=== PATIENT | female | born 1985 | race Caucasian/White ===

== ENCOUNTER 2017-08-20 19:29 | Emergency (ER) | payer MEDICAID, OTHER ==
[~2017-08-20] VITALS: Ht 162.6 cm; Wt 88.2 kg
[2017-08-20] MEDS ORDERED: CLIN300C53 PO (20:48)
[2017-08-20 21:03] VITALS: BP 145/89
== END 2017-08-20 21:07 | disposition home or self-care (01) ==
LOC: ER 19:29
DX: K08.89 Other specified disorders of teeth and supporting structures (principal); F17.200 Nicotine dependence, unspecified, uncomplicated; Z88.5 Allergy status to narcotic agent; Z88.0 Allergy status to penicillin; Z88.2 Allergy status to sulfonamides; Z79.899 Other long term (current) drug therapy
CPT/HCPCS: 99283

== ENCOUNTER 2018-12-19 13:04 | Emergency (ER) | payer MEDICAID ==
[~2018-12-19] VITALS: Ht 162.6 cm; Wt 60.0 kg
[2018-12-19 13:24] VITALS: BP 143/91
== END 2018-12-19 14:15 | disposition home or self-care (01) ==
LOC: ER 13:04
DX: F15.10 Other stimulant abuse, uncomplicated (principal); F17.200 Nicotine dependence, unspecified, uncomplicated; Z02.89 Encounter for other administrative examinations; Z88.6 Allergy status to analgesic agent; Z88.0 Allergy status to penicillin
CPT/HCPCS: 99281

== ENCOUNTER 2019-01-09 09:36 | Emergency (ER) | payer MEDICAID ==
[~2019-01-09] VITALS: Ht 162.6 cm; Wt 69.2 kg
[2019-01-09] MEDS ORDERED: ketorolac trometh inj. 60 MG/2 ML VIAL IM ONE (10:40)
[2019-01-09] MEDS ORDERED: orphenadrine citrate 60mg/2ml inj. IM ONE (10:40)
[2019-01-09] MEDS ORDERED: IBUP-1986 PO (10:42)
[2019-01-09] MEDS ORDERED: ORPH100T2 PO (10:42)
[2019-01-09 11:03] VITALS: BP 138/84
== END 2019-01-09 11:05 | disposition home or self-care (01) ==
LOC: ER 09:37
DX: M25.512 Pain in left shoulder (principal); M54.6 Pain in thoracic spine; F15.90 Other stimulant use, unspecified, uncomplicated; Z88.5 Allergy status to narcotic agent; Z88.0 Allergy status to penicillin; Z88.2 Allergy status to sulfonamides
CPT/HCPCS: 96372; 99283; J1885; J2360

== ENCOUNTER 2019-02-08 08:39 | Emergency (ER) | payer MEDICAID ==
[~2019-02-08] VITALS: Ht 162.6 cm; Wt 68.2 kg
[~2019-02-08 08:39] MED LIST: IBUP-1986 PO; ORPH100T2 PO
[2019-02-08] MEDS ORDERED: HYDROcodone/acetaminophen 5mg/325mg tablet PO ONE (09:30)
[2019-02-08] MEDS ORDERED: CLIN-96 PO (09:38)
--- NOTE | 2019-02-08 09:54 | NUR ---
PATIENT HAS APPOINTMENT WITH DENTIST MATHEW FOR POSSIBLY REMOVING ALL OF HER TEETH
[2019-02-08 09:58] VITALS: BP 138/87
== END 2019-02-08 10:05 | disposition home or self-care (01) ==
LOC: ER 08:40
DX: K08.89 Other specified disorders of teeth and supporting structures (principal); R51 Headache; H92.09 Otalgia, unspecified ear; F17.200 Nicotine dependence, unspecified, uncomplicated; Z60.2 Problems related to living alone; Z88.5 Allergy status to narcotic agent; Z88.0 Allergy status to penicillin; Z88.2 Allergy status to sulfonamides; Z79.2 Long term (current) use of antibiotics; Z79.899 Other long term (current) drug therapy
CPT/HCPCS: 99283

== ENCOUNTER 2019-04-26 07:37 | Emergency (ER) | payer MEDICAID ==
[~2019-04-26] VITALS: Ht 162.6 cm; Wt 68.2 kg
[~2019-04-26 07:37] MED LIST changes: +CLIN-90 PO
[2019-04-26 08:05] VITALS: BP 129/84
[2019-04-26] MEDS ORDERED: AZIT250T PO (09:18)
== END 2019-04-26 09:53 | disposition home or self-care (01) ==
LOC: ER 07:37
DX: J06.9 Acute upper respiratory infection, unspecified (principal); F17.210 Nicotine dependence, cigarettes, uncomplicated; F10.99 Alcohol use, unspecified with unspecified alcohol-induced disorder; Z71.6 Tobacco abuse counseling; Z60.2 Problems related to living alone; Z88.5 Allergy status to narcotic agent; Z88.0 Allergy status to penicillin; Z88.2 Allergy status to sulfonamides; Z79.899 Other long term (current) drug therapy; Y90.9 Presence of alcohol in blood, level not specified
CPT/HCPCS: 99283; 99406

== ENCOUNTER 2019-06-27 10:12 | Emergency (ER) | payer MEDICAID | END 2019-06-27 11:57 | disposition left against medical advice (07) | LOC: ER 10:12 | DX: R22.0 Localized swelling, mass and lump, head (principal); Z53.21 Procedure and treatment not carried out due to patient leaving prior to being seen by health care provider ==

== ENCOUNTER 2019-07-25 08:27 | Emergency (ER) | payer MEDICAID ==
[~2019-07-25] VITALS: Ht 162.6 cm; Wt 68.2 kg
[2019-07-25] MEDS ORDERED: PRED20TA PO (10:09)
[2019-07-25] MEDS ORDERED: ALBU6.7H9 INH (10:09)
[2019-07-25 10:12] VITALS: BP 122/81
== END 2019-07-25 10:14 | disposition home or self-care (01) ==
LOC: ER 08:28
DX: J06.9 Acute upper respiratory infection, unspecified (principal); B97.89 Other viral agents as the cause of diseases classified elsewhere; F17.210 Nicotine dependence, cigarettes, uncomplicated; Z60.2 Problems related to living alone; Z72.89 Other problems related to lifestyle; Z88.5 Allergy status to narcotic agent; Z88.0 Allergy status to penicillin; Z88.2 Allergy status to sulfonamides; Z79.899 Other long term (current) drug therapy
CPT/HCPCS: 99283; 99406

== ENCOUNTER 2019-09-21 14:41 | Emergency (ER) | payer MEDICAID ==
[~2019-09-21] VITALS: Ht 162.6 cm; Wt 68.0 kg
[~2019-09-21 14:41] MED LIST changes: +ALBU6.7H9 INH; -CLIN-90 PO; +CLIN-97 PO
[2019-09-21] MEDS ORDERED: DOXY100C77 PO (15:18)
[2019-09-21] MEDS ORDERED: dexamethasone 4mg tablet PO ONE (15:20)
[2019-09-21] MEDS ORDERED: LIDOcaine 1% W/epiNEPHrine 1:200,000 10ml vial IJ ONE (15:20)
[2019-09-21] MEDS ORDERED: dexamethasone sod phosphate 10mg/ml inj PO ONE (15:25)
[2019-09-21 16:55] VITALS: BP 122/78
== END 2019-09-21 16:53 | disposition home or self-care (01) ==
LOC: ER 14:41
DX: L03.211 Cellulitis of face (principal); Z72.89 Other problems related to lifestyle; Z60.2 Problems related to living alone; Z88.5 Allergy status to narcotic agent; Z88.0 Allergy status to penicillin; Z88.2 Allergy status to sulfonamides; Z79.2 Long term (current) use of antibiotics; Z79.899 Other long term (current) drug therapy
CPT/HCPCS: 10060; 99284; J1100

== ENCOUNTER 2019-09-25 11:10 | Emergency (ER) | payer MEDICAID ==
[~2019-09-25] VITALS: Ht 162.6 cm; Wt 73.0 kg
[~2019-09-25 11:10] MED LIST changes: +DOXY100C77 PO
[2019-09-25 11:16] VITALS: BP 118/78
[2019-09-25] MEDS ORDERED: CLIN-97 PO (12:19)
[2019-09-25] MEDS ORDERED: TRAM50TA2 PO (12:20)
== END 2019-09-25 12:29 | disposition home or self-care (01) ==
LOC: ER 11:10
DX: K04.7 Periapical abscess without sinus (principal); Z88.0 Allergy status to penicillin; Z88.2 Allergy status to sulfonamides; Z88.5 Allergy status to narcotic agent
CPT/HCPCS: 99283

== ENCOUNTER 2024-04-18 14:19 | Emergency (ER) | payer MEDICAID ==
[~2024-04-18] VITALS: Ht 162.6 cm; Wt 93.8 kg
[~2024-04-18 14:19] MED LIST changes: +ALBU6.7H14 INH; -ALBU6.7H9 INH; -DOXY100C77 PO; -ORPH100T2 PO; +ORPH100T4 PO
[2024-04-18] MEDS: ondansetron/PF 4mg/2ml inj IM ONE (15:48)
[2024-04-18] MEDS: normal saline 1000ml 1,000 ML IV ONE (15:49)
[2024-04-18] MEDS ORDERED: ONDA-245 PO (17:04)
[2024-04-18 17:18] VITALS: BP 115/74; PULSE 97; RESP 16; TEMP 98.5; O2SAT 99
== END 2024-04-18 17:19 | disposition home or self-care (01) ==
LOC: ER 14:20
DX: R11.2 Nausea with vomiting, unspecified (principal); R19.7 Diarrhea, unspecified; Z88.0 Allergy status to penicillin; Z88.2 Allergy status to sulfonamides; Z88.5 Allergy status to narcotic agent; Z79.1 Long term (current) use of non-steroidal anti-inflammatories (NSAID); Z79.899 Other long term (current) drug therapy; Z60.2 Problems related to living alone
CPT/HCPCS: 96360; 96372; 99284; J2405; J7030

== ENCOUNTER 2025-04-24 09:18 | Emergency (ER) | payer MEDICAID ==
[~2025-04-24] VITALS: Ht 160 cm; Wt 88.9 kg
[~2025-04-24 09:18] MED LIST changes: +CLIN-224 PO; -CLIN-97 PO; +ONDA-245 PO
[2025-04-24 09:21] VITALS: TEMP 99.7
--- NOTE | 2025-04-24 09:42 | Physician Documentation ---
History of Present Illness ~ Chief Complaint: Headache Stated Complaint: HEADACHE AND BLURRY VISION Time Seen by MD: 09:41 Primary Medical Doctor: Ezequiel Rodas HPI 39-year-old female who presents to the emergency department with complaint of headache that has been intractable since 3:00 a.m. positive photophobia without vomiting. Denies fever, dysuria or cough. Denies recent illness, injury and/or infection. Denies recent travels. Has had reported symptoms in the past that has been waxing and waning. Medication Reconciliation Allergies: Coded Allergies: Penicillins (Verified Allergy, Unknown, 04/24/25) Sulfa (Sulfonamide Antibiotics) (Verified Allergy, Unknown, 04/24/25) codeine (Verified Allergy, Unknown, 04/24/25) Scheduled Albuterol Sulfate (Proventil Hfa), 2 PUFFS INH Q6H Clindamycin HCL* (Clindamycin HCL*), 1 CAP PO Q6H Clindamycin HCL* (Clindamycin HCL*), 1 CAP PO Q8H Ibuprofen (Ibuprofen), 1 TAB PO Q8H Ondansetron 8mg ODT (Ondansetron Odt), 1 TAB PO Q6H Orphenadrine Citrate (Norflex), 1 TAB PO Q12H PRN Past Medical History Past Medical History: No Pertinent History Past Surgical History: no surgical history Alcohol Use: Sober Drug Use: none Lives with: Alone Lives In: Home Review of Systems All Other Systems at this time: Reviewed and Negative Neurological: Reports: headache Physical Exam Vital Signs: RN Vital Signs have been reviewed: Yes, Temperature: 99.7, Source: Oral, Heart Rate: 85, Respiratory Rate: 16, BP: 147/96, Pulse Oximetry: 99, We ight: 88.900 Oxygen Flow Rate: 0 General Appearance: alert, WD/WN, moderate distress ENT: normal ENT inspection Nose: normal inspection Oropharynx: normal inspection Head: normal inspection Respiratory: no respiratory distress Chest: no accessory muscle use Cardiovascular: normal peripheral pulses Gastrointestinal: non-tender Back: no CVA tenderness Extremities: normal inspection Skin: warm/dry Neurologic: oriented x4 Motor / Sensory: no motor deficit, no sensory deficit Cerebellar function exam: normal Progress Results/Orders Results/Orders Completed Orders - SHRUTHI RAHMAN PAC Normal Saline 1000ml (0.9% Sodium Chlori (04/24/25 09:50) Ketorolac Trometh 30mg/Ml Vial (Toradol (04/24/25 09:50) Metoclopramide Inj (Reglan Inj) (04/24/25 09:50) Diphenhydramine Inj (Benadryl Inj.) (04/24/25 09:50) Cbc/Diff (04/24/25 09:48) BMP (04/24/25 09:48) Urinalysis, Cult If Indicated (04/24/25 09:48) Medications Received in ER Medications (Trade) Dose Ordered Sig/Diana Route PRN Reason Start Time Stop Time Status Last Admin Dose Admin Sodium Chloride 1,000 ml @ 1,000 mls/hr ONCE ONCE IV 04/24/25 09:50 04/24/25 10:49 DC 04/24/25 10:12 1,000 MLS/HR (Toradol inj. 30mg/ml) 30 mg ONCE ONCE IV 04/24/25 09:50 04/24/25 09:51 DC 04/24/25 10:12 30 MG (Reglan inj) 10 mg ONCE ONCE IV 04/24/25 09:50 04/24/25 09:51 DC 04/24/25 10:12 10 MG (Benadryl inj.) 50 mg ONCE ONCE IV 04/24/25 09:50 04/24/25 09:51 DC 04/24/25 10:12 50 MG Vital Signs 04/24/25 04/24/25 09:21 10:12 Temp 99.7 Pulse 85 Resp 16 14 B/P (MAP) 147/96 Pulse Ox 99 O2 Flow Rate 0 Laboratory Tests Test 04/24/25 09:25 04/24/25 10:02 04/24/25 10:42 Glucometer 98 White Blood Count 4.6 Red Blood Count 4.74 Hemoglobin 13.1 Hematocrit 38.3 Mean Corpuscular Volume 80.8 Mean Corpuscular Hemoglobin 27.7 Mean Corpuscular Hemoglobin Concent 34.2 Red Cell Distribution Width 13.7 Platelet Count 229 Mean Platelet Volume 8.7 Neutrophils (%) (Auto) 56.3 Lymphocytes (%) (Auto) 33.1 Monocytes (%) (Auto) 6.9 Eosinophils (%) (Auto) 2.9 Basophils (%) (Auto) 0.8 Neutrophils # (Auto) 2.6 Lymphocytes # (Auto) 1.5 Monocytes # (Auto) 0.3 Eosinophils # (Auto) 0.1 Basophils # (Auto) 0.0 CBC Comment Sodium Level 139 Potassium Level 4.2 Chloride Level 107 Carbon Dioxide Level 27.0 Anion Gap 5 L Blood Urea Nitrogen 10 Creatinine 0.64 Estimated GFR/1.73 m2 > 90 BUN/Creatinine Ratio 15.6 Glucose Level 100 Calcium Level 8.1 L Albumin 3.8 Chemistry Comments Urine Specimen Description Cln catch midstream Urine Color Yellow Urine Clarity Clear Urine pH 7.0 Urine Specific [place] 1.010 Urine Protein Negative Urine Glucose (UA) Negative Urine Ketones Negative Urine Occult Blood Negative Urine Nitrite Negative Urine Bilirubin Negative Urine Urobilinogen 0.2 Urine Leukocyte Esterase Negative Urine Culture Indicated Not ind Volume Urine Centrifuged 10 ml Urine Comment Medical Decision Making Additional information obtaine: old records Findings 39-year-old female who presents to the emergency department with intractable headache since 3:00 a.m.. He has prior history of the same. We will go ahead and obtain screening labs, provide IV hydration along with Toradol, Benadryl and Reglan for mitigation of headache. No clear indication for CT imaging at this point. No clinical suspicion for infectious process such as pyelonephritis, meningitis or encephalitis. Screening labs all reassuring. Patient reassessed several times. Headache nearly completely mitigated. She remains neurologically intact discharged without focal neuro deficits to follow up with the primary care. Differential Dx:Considerations: Include: BLAKE-Cluster, BLAKE-Migraine, BLAKE- Hypertensive, BLAKE-Muscular contraction, BLAKE-Post lumbar puncture, Carbon monoxide toxicity, Close head injuyr, CVA, Fever induced, Hemorrhage-Epidural, Hemorrhage-Intracerebral, Hemorrhage-Subarachnoid, Hemorrhage-Subdural, Mass lesion, Meningitis, Post-traumtic, Pseudotumor cerebri, Sinusitis, Temporal a rteritis, Trigeminal neuralgia, Other (Pseudotumor cerebri) Departure Disposition: HOME / SELF CARE / HOMELESS Impression: Primary Impression: Headache Qualified Codes: R51.9 - Headache, unspecified Discharge Instructions: Headache Additional Instructions: Today in the emergency department you had screening labs which were all reassuring. You received IV medications for headache resolution. Please make follow up appointment with your primary care physician for re-evaluation and consideration for neurology referral. Thank you for visiting emergency department [facility]. Referrals: NO PRIMARY CARE PROVIDER (PCP) Education Educated: Patient Educated regarding: diagnosis, treatment, prognosis, need for follow up Signature Scribe Signature: . Attestation: . SHRUTHI RAHMAN [facility] Apr 24, 2025 09:42
[2025-04-24] MEDS: metoclopramide 5 mg/ml inj IV ONE (10:12)
[2025-04-24] MEDS: ketorolac trometh 30MG/ML vial 30 MG/ML VIAL IV ONE (10:12)
[2025-04-24] MEDS: normal saline 1000ml 1,000 ML IV ONE (10:12)
[2025-04-24 10:16] LABS: MEAN PLATELET VOLUME 8.7 FL (7.4-10.4); RED CELL DISTRIBUTION WIDTH 13.7 % (11.5-14.5)
[2025-04-24 10:24] LABS: CREATININE 0.64 MG/DL (0.40-0.90); TOTAL CARBON DIOXIDE 27.0 MMOL/L (24-32); eCRCL 100 ML/MIN; eGFR > 90 ML/MIN
[2025-04-24 10:53] LABS: LEUKOCYTE ESTERASE ,URINE NEGATIVE (Neg); NITRITES, URINE NEGATIVE (Neg); OCCULT BLOOD,URINE NEGATIVE (Neg)
[2025-04-24 11:01] LABS: UA COLLECTION TYPE CLN CATCH MIDSTREAM
[2025-04-24 11:29] VITALS: BP 123/83; PULSE 80; RESP 16; O2SAT 100
== END 2025-04-24 11:37 | disposition home or self-care (01) ==
LOC: ER 09:18
DX: R51.9 Headache, unspecified (principal); Z88.0 Allergy status to penicillin; Z88.2 Allergy status to sulfonamides; Z88.5 Allergy status to narcotic agent; Z79.899 Other long term (current) drug therapy
CPT/HCPCS: 36415; 80048; 81003; 82948; 85025; 96361; 96374; 96375; 99284; J1200; J1885; J2765; J7030